=== PATIENT | male | born 1965 | race Caucasian/White ===

== ENCOUNTER 2017-02-28 13:26 | Emergency (ER) | payer BC ==
[2017-02-28 13:55] VITALS: RESP 18
[2017-02-28] MEDS ORDERED: RX INFO: IV CONTRAST WAS GIVEN 1 EACH MISC MISCELLANE PRN (13:56)
[2017-02-28] MEDS ORDERED: MORPHINE SULFATE 4 MG/ML SYRINGE IV STA (13:56)
[2017-02-28] MEDS ORDERED: ONDANSETRON 4 MG/2 ML VIAL IVP STA (13:56)
[2017-02-28] MEDS ORDERED: PANTOPRAZOLE 40 MG/10 ML VIAL IVP STA (13:56)
[2017-02-28] MEDS ORDERED: SODIUM CHLORIDE 0.9% 1,000 ML IV STA ×2 (13:56)
[2017-02-28 14:26] LABS: Basophils # (A) 0.1 k/uL (0-0.2); Basophils % (A) 1 %; CH 30.6; CHCM 33.2; Eosinophils # (A) 0.3 k/uL (0-0.7); Eosinophils % (A) 4 %; HCT 45.3 % (39.0-53.0); HGB 14.8 gm/dL (13.0-17.5); Luc # (Auto) 0.17; Luc % (Auto) 3; Lymphocytes # (A) 1.3 k/uL (1.0-4.8); Lymphocytes % (A) 20 %; MCH 30.3 pg (25.0-35.0); MCHC 32.8 g/dL (31.0-37.0); MCV 92.6 fL (80.0-100.0); Mean Platelet Volume 7.2; Monocytes # (A) 0.6 k/uL (0-1.0); Monocytes % (A) 9 %; Neutrophils % (A) 64 %; RBC 4.89 m/uL (4.30-5.90); RDW 12.9 % (11.5-15.5); WBC 6.3 k/uL (3.8-10.6); WBC (Perox) 5.79
--- NOTE | 2017-02-28 14:27 | ED ---
General Adult HPI - General Chief complaint: Abdominal Pain Stated complaint: Abd Pain/Urinate blood Time Seen by Provider: 02/28/17 13:42 Source: patient, RN notes reviewed, old records reviewed Mode of arrival: ambulatory Limitations: no limitations - History of Present Illness Initial comments: This is a 51-year-old male the ER for evaluation of abdominal pain. Right upper quadrant epigastric abdominal pain. No history of obstruction the patient thinks he probably has bowel blockage. No history of abdominal surgery. Patient has a little bit of high cholesterol and no other medical issues takes no medications. Resistant been constipated for a few week days to week. No help with [id number] medications. He did notice some blood in his stool yesterday. He has had prior colonoscopy which had some diverticulosis but no significant findings. - Related Data Home Medications Medication Instructions Recorded Confirmed Omeprazole [PriLOSEC] 20 tab PO DAILY 03/10/15 02/28/17 Atorvastatin [Lipitor] 20 mg PO HS 02/28/17 02/28/17 Cetirizine HCl [Zyrtec] 10 mg PO DAILY PRN 02/28/17 02/28/17 Cholecalciferol [Vitamin D3] 1,000 unit PO DAILY 02/28/17 02/28/17 Ibuprofen [Motrin] 600 mg PO BID PRN 02/28/17 02/28/17 Allergies Allergy/AdvReac Type Severity Reaction Status Date / Time succinylcholine AdvReac Severe Toxicity Verified 02/28/17 15:18 Review of Systems ROS Statement: Those systems with pertinent positive or pertinent negative responses have been documented in the HPI. ROS Other: All systems not noted in ROS Statement are negative. Past Medical History Past Medical History: Hyperlipidemia Additional Past Medical History / Comment(s): irritable bowel syndrome History of Any Multi-Drug Resistant Organisms: None Reported Past Surgical History: No Surgical Hx Reported Past Psychological History: No Psychological Hx Reported Smoking Status: Never smoker Past Alcohol Use History: None Reported Past Drug Use History: None Reported General Exam Limitations: no limitations General appearance: alert, in no apparent distress Head exam: Present: atraumatic, normocephalic, normal inspection Eye exam: Present: normal appearance, PERRL, EOMI. Absent: scleral icterus, conjunctival injection, periorbital swelling ENT exam: Present: normal exam, mucous membranes moist Neck exam: Present: normal inspection. Absent: tenderness, meningismus, lymphadenopathy Respiratory exam: Present: normal lung sounds bilaterally. Absent: respiratory distress, wheezes, rales, rhonchi, stridor Cardiovascular Exam: Present: regular rate, normal rhythm, normal heart sounds. Absent: systolic murmur, diastolic murmur, rubs, gallop, clicks GI/Abdominal exam: Present: soft, normal bowel sounds. Absent: distended, tenderness, guarding, rebound, rigid Extremities exam: Present: normal inspection, full ROM, normal capillary refill. Absent: tenderness, pedal edema, joint swelling, calf tenderness Back exam: Present: normal inspection Neurological exam: Present: alert, oriented X3, CN II-XII intact Psychiatric exam: Present: normal affect, normal mood Skin exam: Present: warm, dry, intact, normal color. Absent: rash Course Vital Signs 02/28/17 13:50 Temperature 97.8 F Pulse Rate 89 Respiratory 18 Rate Blood Pressure 131/84 O2 Sat by Pulse 97 Oximetry - Reevaluation(s) Reevaluation #1: 02/28/17 15:36 At this point patient has complete resolution of symptoms Medical Decision Making - Medical Decision Making 51 mallei are free patient down pain, epigastric left upper quadrant abdominal pain. CT abdomen and pelvis is negative for acute disease labwork is normal patient can be discharged home - Lab Data Result diagrams: 02/28/17 14:13 02/28/17 14:13 Lab Results 02/28/17 02/28/17 02/28/17 Range/Units 14:13 14:13 14:13 WBC 6.3 (3.8-10.6) k/uL RBC 4.89 (4.30-5.90) m/uL Hgb 14.8 (13.0-17.5) gm/dL Hct 45.3 (39.0-53.0) % MCV 92.6 (80.0-100.0) fL MCH 30.3 (25.0-35.0) pg MCHC 32.8 (31.0-37.0) g/dL RDW 12.9 (11.5-15.5) % Plt Count 237 (150-450) k/uL Neutrophils % 64 % Lymphocytes % 20 % Monocytes % 9 % Eosinophils % 4 % Basophils % 1 % Neutrophils # 4.0 (1.3-7.7) k/uL Lymphocytes # 1.3 (1.0-4.8) k/uL Monocytes # 0.6 (0-1.0) k/uL Eosinophils # 0.3 (0-0.7) k/uL Basophils # 0.1 (0-0.2) k/uL Sodium 144 (137-145) mmol/L Potassium 4.3 (3.5-5.1) mmol/L Chloride 111 H (98-107) mmol/L Carbon Dioxide 26 (22-30) mmol/L Anion Gap 7 mmol/L BUN 15 (9-20) mg/dL Creatinine 0.90 (0.66-1.25) mg/dL Est GFR (MDRD) Af Amer >60 (>60 ml/min/1.73 sqM) Est GFR (MDRD) Non-Af >60 (>60 ml/min/1.73 sqM) Glucose 116 H (74-99) mg/dL Plasma Lactic Acid Sawyer (0.7-2.0) mmol/L Calcium 9.0 (8.4-10.2) mg/dL Total Bilirubin 0.7 (0.2-1.3) mg/dL AST 31 (17-59) U/L ALT 41 (21-72) U/L Alkaline Phosphatase 70 (38-126) U/L Total Creatine Kinase 359 H (55-170) U/L CK-MB (CK-2) 2.6 H* (0.0-2.4) ng/mL CK-MB (CK-2) Rel Index 0.7 Troponin I <0.012 (0.000-0.034) ng/mL Total Protein 7.2 (6.3-8.2) g/dL Albumin 4.0 (3.5-5.0) g/dL Amylase 65 (30-110) U/L Lipase 97 (23-300) U/L 02/28/17 Range/Units 14:13 WBC (3.8-10.6) k/uL RBC (4.30-5.90) m/uL Hgb (13.0-17.5) gm/dL Hct (39.0-53.0) % MCV (80.0-100.0) fL MCH (25.0-35.0) pg MCHC (31.0-37.0) g/dL RDW (11.5-15.5) % Plt Count (150-450) k/uL Neutrophils % % Lymphocytes % % Monocytes % % Eosinophils % % Basophils % % Neutrophils # (1.3-7.7) k/uL Lymphocytes # (1.0-4.8) k/uL Monocytes # (0-1.0) k/uL Eosinophils # (0-0.7) k/uL Basophils # (0-0.2) k/uL Sodium (137-145) mmol/L Potassium (3.5-5.1) mmol/L Chloride (98-107) mmol/L Carbon Dioxide (22-30) mmol/L Anion Gap mmol/L BUN (9-20) mg/dL Creatinine (0.66-1.25) mg/dL Est GFR (MDRD) Af Amer (>60 ml/min/1.73 sqM) Est GFR (MDRD) Non-Af (>60 ml/min/1.73 sqM) Glucose (74-99) mg/dL Plasma Lactic Acid Sawyer 1.4 (0.7-2.0) mmol/L Calcium (8.4-10.2) mg/dL Total Bilirubin (0.2-1.3) mg/dL AST (17-59) U/L ALT (21-72) U/L Alkaline Phosphatase (38-126) U/L Total Creatine Kinase (55-170) U/L CK-MB (CK-2) (0.0-2.4) ng/mL CK-MB (CK-2) Rel Index Troponin I (0.000-0.034) ng/mL Total Protein (6.3-8.2) g/dL Albumin (3.5-5.0) g/dL Amylase (30-110) U/L Lipase (23-300) U/L - Radiology Data Radiology results: report reviewed (CT and pelvis is negative for acute disease) , image reviewed Disposition Clinical Impression: Constipation, Abdominal pain, Gastritis Disposition: HOME SELF-CARE Condition: Good Instructions: Abdominal Pain (ED) Referrals: Mariusz Solitario MD [Primary Care Provider] - 1-2 days
[2017-02-28 14:56] LABS: Creatine Kinase 359 U/L (55-170)
[2017-02-28 15:04] LABS: ALT 41 U/L (21-72); AST 31 U/L (17-59); Alkaline Phosphatase 70 U/L (38-126); Amylase 65 U/L (30-110); Anion Gap 7 mmol/L; Blood Urea Nitrogen 15 mg/dL (9-20); Carbon Dioxide 26 mmol/L (22-30); Chloride 111 mmol/L (98-107); Glucose 116 mg/dL (74-99); Non-African American GFR(MDRD) >60 (>60 ml/min/1.73 sqM); Potassium 4.3 mmol/L (3.5-5.1); Sodium 144 mmol/L (137-145); Total Bilirubin 0.7 mg/dL (0.2-1.3); Total Protein 7.2 g/dL (6.3-8.2)
[2017-02-28 15:07] LABS: Troponin I <0.012 ng/mL (0.000-0.034)
[2017-02-28 15:09] LABS: Creatine Kinase MB 2.6 ng/mL (0.0-2.4)
--- NOTE | 2017-02-28 15:11 | CT ---
EXAMINATION TYPE: CT abdomen pelvis w con DATE OF EXAM: 02/28/2017 2:58 PM COMPARISON: 03/10/2015 HISTORY: Upper abdominal pain, constipation x [address] DLP: 1821.00 mGycm Automated exposure control for dose reduction was used. TECHNIQUE: Helical acquisition of images was performed from the lung bases through the pelvis. CONTRAST: Performed without Oral Contrast and with IV Contrast, patient injected with 100 mL of Omnipaque 300. FINDINGS: Lung bases are clear of consolidation. There is mild subsegmental atelectasis at the lung bases. Ther e is no pleural effusion. Heart size is normal. Liver spleen pancreas gallbladder appear normal. Bile ducts are not dilated. There is no adrenal mass . Kidneys show satisfactory contrast opacification. There is no hydronephrosis. Appendix appears norm al. I see no intestinal wall thickening. There are no dilated loops. Bladder distends smoothly. There is no ascites. There is no sign of a pelvic mass. There are some diverticula in the descending colon and sigmoid colon. There is no sign of diverticulitis. I see no bony destructive process. IMPRESSION: THERE IS LEFT-SIDED COLONIC DIVERTICULOSIS WITHOUT SIGN OF DIVERTICULITIS. THERE IS CLEARING OF THE M ILD LEFT-SIDED HYDRONEPHROSIS AND PERINEPHRIC EDEMA COMPARED TO OLD EXAM. MILD SUBSEGMENTAL ATELECTAS IS AT THE LUNG BASES.
[2017-02-28 15:44] LABS: Appearance,Urine Clear (Clear); Bilirubin,Urine Negative (Negative); Glucose,Urine (UA) Negative (Negative); Ketones,Urine Negative (Negative); Leukocyte Esterase,Urine Negative (Negative); Nitrite,Urine Negative (Negative); PH, Urine 5.5 (5.0-8.0); Protein,Urine Negative (Negative); Specific Gravity,Urine 1.028 (1.001-1.035); UA Billing (MACRO vs. MICRO) CHEM; Urobilinogen,Urine <2.0 mg/dL (<2.0)
[2017-02-28 15:47] VITALS: BP 118/70; PULSE 63; TEMP 97.2
== END 2017-02-28 15:46 | disposition home or self-care (01) ==
LOC: EC 13:26
DX: K59.00 Constipation, unspecified (principal); K29.70 Gastritis, unspecified, without bleeding; E78.5 Hyperlipidemia, unspecified; Z88.8 Allergy status to other drugs, medicaments and biological substances; Z79.899 Other long term (current) drug therapy
CPT/HCPCS: 99284; 96374; 96375 ×2; 96361; 36415; 80053; 82150; 82550; 82553; 83605; 83690; 84484; 85025; 81003; 87086; 74177; J2270; J2405; Q9967; C9113

== ENCOUNTER → 2017-03-21 | Outpatient (CLI) | payer BC ==
[2017-03-21 17:01] LABS: Basophils % (A) 1 %; CHCM 34.3; Eosinophils # (A) 0.1 k/uL (0-0.7); Eosinophils % (A) 3 %; HCT 45.7 % (39.0-53.0); HDW 2.58; HGB 15.2 gm/dL (13.0-17.5); Luc # (Auto) 0.18; Luc % (Auto) 3; Lymphocytes # (A) 1.1 k/uL (1.0-4.8); Lymphocytes % (A) 21 %; MCH 30.2 pg (25.0-35.0); MCHC 33.3 g/dL (31.0-37.0); MCV 90.7 fL (80.0-100.0); Mean Platelet Volume 6.9; Monocytes # (A) 0.4 k/uL (0-1.0); Monocytes % (A) 9 %; Neutrophils # (A) 3.3 k/uL (1.3-7.7); Neutrophils % (A) 64 %; RBC 5.04 m/uL (4.30-5.90); RDW 12.4 % (11.5-15.5); WBC 5.2 k/uL (3.8-10.6); WBC (Perox) 5.44
[2017-03-21 17:11] LABS: ALT 57 U/L (21-72); AST 28 U/L (17-59); Alkaline Phosphatase 86 U/L (38-126); Anion Gap 12 mmol/L; Blood Urea Nitrogen 16 mg/dL (9-20); C Reactive Protein 6.2 mg/L (<10.0); Calcium 9.6 mg/dL (8.4-10.2); Carbon Dioxide 25 mmol/L (22-30); Chloride 109 mmol/L (98-107); Cholesterol 214 mg/dL (<200); Creatine Kinase 177 U/L (55-170); Glucose 89 mg/dL (74-99); HDL Cholesterol 33 mg/dL (40-60); Magnesium 1.8 mg/dL (1.6-2.3); Non-African American GFR(MDRD) >60 (>60 ml/min/1.73 sqM); Phosphorous 3.4 mg/dL (2.5-4.5); Potassium 4.1 mmol/L (3.5-5.1); Sodium 146 mmol/L (137-145); Total Bilirubin 1.4 mg/dL (0.2-1.3); Total Protein 7.7 g/dL (6.3-8.2); Triglycerides 136 mg/dL (<150); Uric Acid 10.5 mg/dL (3.5-8.5)
[2017-03-21 17:38] LABS: Prostate Specific Antigen 0.59 ng/mL (0.00-4.00)
[2017-03-21 20:02] LABS: Erythrocyte Sedimentation Rate 5 mm/hr (0-15)
== END | disposition home or self-care (01) ==
LOC: LABWHC1 16:36
PROVIDERS: ATTEND Internal Medicine
DX: Z00.00 Encounter for general adult medical examination without abnormal findings (principal); N40.0 Benign prostatic hyperplasia without lower urinary tract symptoms; E78.5 Hyperlipidemia, unspecified; E55.9 Vitamin D deficiency, unspecified; N34.3 Urethral syndrome, unspecified
CPT/HCPCS: 36415; 80053; 80061; 82306; 82550; 83735; 84100; 84153; 84443; 84550; 85025; 85652; 86140

== ENCOUNTER → 2017-04-04 | Outpatient (CLI) | payer BC ==
--- NOTE | 2017-04-04 09:18 | CT ---
EXAMINATION TYPE: CT abdomen w con DATE OF EXAM: 04/04/2017 COMPARISON: 02/28/2017 INDICATION: Frequent constipation DLP: 1387.9 mGycm, Automated exposure control for dose reduction was used. CONTRAST: 100 mL of Omnipaque 300. Study performed with Oral Contrast TECHNIQUE: Axial images were obtained from above the diaphragm to the pubic rami in the axial plane a t 5 mm thick sections. Reconstructed images are reviewed on the computer in the coronal plane. FINDINGS: Limited CT sections are obtained the lung bases. Some mild streak opacity is present greater at the right base, likely on the basis of subsegmental atelectasis.. CT ABDOMEN: Liver: There is mild fatty infiltration to the liver. No discrete masses or cysts are evident. Spleen: Normal Pancreas: Normal Adrenal glands: The adrenal glands are normal. Gallbladder: Normal Kidneys: No masses are evident. No hydronephrosis is present. Small cortical renal cyst on the mid left kidney measuring 1.0 cm. Delayed images were obtained through the kidneys, which remain unremark able. Aorta: Normal Inferior vena cava: Normal. Loops of bowel within the abdomen and pelvis are normal. There are loops of bowel which are incom pletely distended or lack oral contrast limiting their evaluation. Scattered diverticuli are within t he distal colon were visualized. Appendix: Normal as visualized. IMPRESSIONS: 1. Mild fatty infiltration of the liver. 2. Scattered diverticuli without diverticulitis.
== END | disposition home or self-care (01) ==
LOC: RADCTMAIN 08:04
PROVIDERS: ATTEND Internal Medicine
DX: K57.30 Diverticulosis of large intestine without perforation or abscess without bleeding (principal); K76.0 Fatty (change of) liver, not elsewhere classified; K59.00 Constipation, unspecified; R10.32 Left lower quadrant pain; Z88.8 Allergy status to other drugs, medicaments and biological substances
CPT/HCPCS: 74160; Q9967

== ENCOUNTER → 2018-07-24 | Outpatient (CLI) | payer BC ==
[2018-07-24 14:53] LABS: Basophils # (A) 0.1 k/uL (0-0.2); Basophils % (A) 1 %; Eosinophils # (A) 0.1 k/uL (0-0.7); Eosinophils % (A) 2 %; HCT 45.2 % (39.0-53.0); HGB 14.5 gm/dL (13.0-17.5); Lymphocytes # (A) 1.2 k/uL (1.0-4.8); Lymphocytes % (A) 25 %; MCH 29.6 pg (25.0-35.0); MCHC 32.1 g/dL (31.0-37.0); MCV 92.4 fL (80.0-100.0); Mean Platelet Volume 7.1; Monocytes # (A) 0.4 k/uL (0-1.0); Monocytes % (A) 9 %; Neutrophils # (A) 2.9 k/uL (1.3-7.7); Neutrophils % (A) 60 %; Platelet Count 274 k/uL (150-450); RBC 4.89 m/uL (4.30-5.90); RDW 12.6 % (11.5-15.5); WBC 4.8 k/uL (3.8-10.6)
[2018-07-24 15:18] LABS: ALT 51 U/L (21-72); AST 29 U/L (17-59); Albumin 4.2 g/dL (3.5-5.0); Alkaline Phosphatase 74 U/L (38-126); Anion Gap 7 mmol/L; Blood Urea Nitrogen 16 mg/dL (9-20); C Reactive Protein <5.0 mg/L (<10.0); Calcium 9.4 mg/dL (8.4-10.2); Carbon Dioxide 27 mmol/L (22-30); Chloride 110 mmol/L (98-107); Cholesterol 197 mg/dL (<200); Creatine Kinase 222 U/L (55-170); Glucose 92 mg/dL (74-99); HDL Cholesterol 32 mg/dL (40-60); LDL Cholesterol,Calculated 143 mg/dL (0-99); Potassium 4.6 mmol/L (3.5-5.1); Sodium 144 mmol/L (137-145); Total Bilirubin 1.1 mg/dL (0.2-1.3); Total Protein 7.4 g/dL (6.3-8.2); Triglycerides 110 mg/dL (<150)
[2018-07-24 15:42] LABS: Prostate Specific Antigen 0.73 ng/mL (0.00-4.00)
[2018-07-24 15:58] LABS: Erythrocyte Sedimentation Rate 8 mm/hr (0-15)
== END | disposition home or self-care (01) ==
LOC: LABWHC1 13:27
PROVIDERS: ATTEND Internal Medicine
DX: E78.5 Hyperlipidemia, unspecified (principal); I10 Essential (primary) hypertension; E55.9 Vitamin D deficiency, unspecified; N40.0 Benign prostatic hyperplasia without lower urinary tract symptoms; K21.9 Gastro-esophageal reflux disease without esophagitis
CPT/HCPCS: 36415; 80053; 80061; 82306; 82550; 84153; 85025; 85652; 86140

== ENCOUNTER 2018-12-11 16:20 | Outpatient (CLI) | payer BC | END 2018-12-11 16:38 | disposition home or self-care (01) | LOC: PEDOP 16:20 | PROVIDERS: ATTEND Internal Medicine | DX: N39.0 Urinary tract infection, site not specified (principal); J09.X2 Influenza due to identified novel influenza A virus with other respiratory manifestations | CPT/HCPCS: 87502; 99212 ==

== ENCOUNTER → 2019-08-15 | Outpatient (CLI) | payer BC ==
[2019-08-15 18:24] LABS: Basophils # (A) 0.1 k/uL (0-0.2); Basophils % (A) 1 %; Eosinophils # (A) 0.2 k/uL (0-0.7); Eosinophils % (A) 3 %; HGB 14.4 gm/dL (13.0-17.5); Lymphocytes # (A) 1.5 k/uL (1.0-4.8); Lymphocytes % (A) 23 %; MCH 29.4 pg (25.0-35.0); MCV 91.8 fL (80.0-100.0); Monocytes # (A) 0.5 k/uL (0-1.0); Monocytes % (A) 8 %; Neutrophils # (A) 3.9 k/uL (1.3-7.7); Neutrophils % (A) 62 %; Platelet Count 269 k/uL (150-450); RDW 12.4 % (11.5-15.5); WBC 6.2 k/uL (3.8-10.6)
[2019-08-15 19:37] LABS: Erythrocyte Sedimentation Rate 8 mm/hr (0-15)
[2019-08-16 00:31] LABS: ALT 33 U/L (10-49); AST 24 U/L (14-35); African American GFR (CKD) 98.5 (60.0-200.0); Albumin/Globulin Ratio 1.83 (1.60-3.17); Alkaline Phosphatase 86 U/L (41-126); C Reactive Protein <0.4 mg/dL (0.0-0.8); Calcium 8.9 mg/dL (8.7-10.3); Chloride 108 mmol/L (96-109); Chol/HDL Ratio 6.59; Cholesterol 211 mg/dL (0-200); Creatine Kinase 213 U/L (35-257); Globulin 2.4 g/dL (1.6-3.3); Glucose 76 mg/dL (70-110); Magnesium 1.7 mg/dL (1.5-2.4); Phosphorus 3.4 mg/dL (2.4-5.1); Potassium 4.4 mmol/L (3.5-5.5); Sodium 143 mmol/L (135-145); Total Bilirubin 0.9 mg/dL (0.3-1.2); Total Protein 6.8 g/dL (6.2-8.2); Uric Acid 10.2 mg/dL (3.7-8.7)
== END | disposition home or self-care (01) ==
LOC: LABWHC1 17:08
PROVIDERS: ATTEND Internal Medicine
DX: E78.5 Hyperlipidemia, unspecified (principal); E55.9 Vitamin D deficiency, unspecified; I10 Essential (primary) hypertension; N20.0 Calculus of kidney; M10.9 Gout, unspecified; N40.0 Benign prostatic hyperplasia without lower urinary tract symptoms
CPT/HCPCS: 36415; 80053; 80061; 82306; 82550; 83735; 84100; 84153; 84550; 85025; 85652; 86140

== ENCOUNTER 2020-03-30 16:16 | Emergency (ER) | payer BC ==
[2020-03-30] MEDS ORDERED: SODIUM CHLORIDE 0.9% 1,000 ML IV STA (16:35)
[2020-03-30] MEDS ORDERED: KETOROLAC 30 MG/ML 1 ML VIAL IVP STA (16:35)
--- NOTE | 2020-03-30 17:02 | ED ---
General Adult HPI - General Source: patient, RN notes reviewed Mode of arrival: ambulatory Limitations: no limitations <Jared Stuart - Last Filed: 03/30/20 22:34> <Sarahy Elder - Last Filed: 04/03/20 16:39> - General Chief complaint: Extremity Problem,Nontraumatic Stated complaint: right wrist pain Time Seen by Provider: 03/30/20 16:25 - History of Present Illness Initial comments: 54-year-old male presents to the emergency department for a chief complaint of right arm pain. Patient states that he has had pain in the right first and second digits starting about 2 weeks ago. States the pain is progressively spread to his hand and wrist to the point where it is very painful to move the wrist especially in extension. States the pain has extended up now past the elbow onto the right shoulder. Patient states the right wrist is also swollen. Patient went to [facility] and had an x-ray done where there is concern for non-gaseous necrotizing fasciitis on x-ray. He was sent here to the emergency r oom. He does not have any fevers. He does state that he was told his uric acid levels were high but he does not have a history of gout.Patient has no other complaints at this time including shortness of breath, chest pain, abdominal pain, nausea or vomiting, headache, or visual changes. (Jared Stuart) - Related Data Home Medications Medication Instructions Recorded Confirmed Omeprazole [PriLOSEC] 20 tab PO DAILY 03/10/15 02/28/17 Atorvastatin [Lipitor] 20 mg PO HS 02/28/17 02/28/17 Cetirizine HCl [Zyrtec] 10 mg PO DAILY PRN 02/28/17 02/28/17 Cholecalciferol [Vitamin D3] 1,000 unit PO DAILY 02/28/17 02/28/17 Ibuprofen [Motrin] 600 mg PO BID PRN 02/28/17 02/28/17 Previous Rx's Medication Instructions Recorded Acetaminophen with Codeine 1 tab PO Q4H PRN #20 tab 02/28/17 [Tylenol w/codeine #3] Dicyclomine [Bentyl] 20 mg PO QID #20 tablet 02/28/17 Omeprazole [PriLOSEC] 20 mg PO AC-BID #30 cap 02/28/17 Ondansetron [Zofran] 4 mg PO Q8HR PRN #30 tab 02/28/17 Ondansetron [Zofran ODT] 4 mg PO Q8HR PRN #15 tab 03/30/20 predniSONE 50 mg PO DAILY #5 tablet 03/30/20 Allergies Allergy/AdvReac Type Severity Reaction Status Date / Time succinylcholine AdvReac Severe Toxicity Verified 03/30/20 16:23 Review of Systems ROS Other: All systems not noted in ROS Statement are negative. <Jared Stuart P - Last Filed: 03/30/20 22:34> ROS Other: All systems not noted in ROS Statement are negative. <Sarahy Elder - Last Filed: 04/03/20 16:39> ROS Statement: Those systems with pertinent positive or pertinent negative responses have been documented in the HPI. Past Medical History Past Medical History: Hyperlipidemia Additional Past Medical History / Comment(s): irritable bowel syndrome History of Any Multi-Drug Resistant Organisms: None Reported Past Surgical History: No Surgical Hx Reported Past Psychological History: No Psychological Hx Reported Smoking Status: Never smoker Past Alcohol Use History: None Reported Past Drug Use History: None Reported <Jared Stuart P - Last Filed: 03/30/20 22:34> General Exam Limitations: no limitations General appearance: alert, in no apparent distress Head exam: Present: atraumatic, normocephalic, normal inspection Eye exam: Present: normal appearance, PERRL, EOMI. Absent: scleral icterus, conjunctival injection, periorbital swelling ENT exam: Present: normal exam, mucous membranes moist Neck exam: Present: normal inspection, full ROM. Absent: tenderness, meningi smus, lymphadenopathy Respiratory exam: Present: normal lung sounds bilaterally. Absent: respiratory distress, wheezes, rales, rhonchi, stridor Cardiovascular Exam: Present: regular rate, normal rhythm, normal heart sounds. Absent: systolic murmur, diastolic murmur, rubs, gallop, clicks GI/Abdominal exam: Present: soft, normal bowel sounds. Absent: distended, tenderness, guarding, rebound, rigid Extremities exam: Present: normal inspection, full ROM (Patient has limited flexion of the fingers with full extension of the right hand. Patient has limited extension of the right wrist secondary to pain. Full range motion of the right elbow and right shoulder.), normal capillary refill (Refill less than 2 seconds, radial pulse 2+.), joint swelling (Patient does have some edema noted of the dorsal right wrist however no streaking erythema.). Absent: tenderness, pedal edema, calf tenderness <Jared Stuart - Last Filed: 03/30/20 22:34> Course Vital Signs 03/30/20 03/30/20 16:22 19:15 Temperature 98.7 F 98.0 F Pulse Rate 81 52 L Respiratory 18 13 Rate Blood Pressure 127/80 108/68 O2 Sat by Pulse 98 96 Oximetry Medical Decision Making - Lab Data Result diagrams: 03/30/20 17:12 03/30/20 17:12 <Jared Stuart - Last Filed: 03/30/20 22:34> - Lab Data Result diagrams: 03/30/20 17:12 03/30/20 17:12 <Sarahy Elder - Last Filed: 04/03/20 16:39> - Medical Decision Making Outpatient x-ray showed subtle subcutaneous edematous streaking suspicious for possible myositis or non gas-forming necrotizing fasciitis. Vitals are stable. Patient does have some edema of the dorsum right wrist with pain with range of motion. However patient does not have any erythema or increased warmth of the right wrist. Neurovascular status intact. Full range of motion of the right elbow and shoulder. Patient able to move all fingers make okay sign. CBC CMP is unremarkable. White blood cell count is normal. ESR is normal. CRP is only minimally elevated at 17.7. Both wrist and hand x- rays here are negative. Dr. Elder also evaluated patient. At this time given symptoms have been ongoing for 2 weeks there is no erythema, increased warmth, or fevers this is not consistent with infectious etiology. Likely inflammatory. Dr. Elder discussed this case with Dr. Garduno who agrees and recommends this is likely pseudogout. He is not concerned for necrotizing fasciitis which we agree with. Recommends putting patient on steroids and having him follow-up in the office. Patient is agreeable to this accident is much improved after IV Toradol. He was given dose of IV steroids before departure. (Jared Stuart) I was available for consultation in the emergency department. The history and physical exam were done by the midlevel provider. I was consulted for this patients care. I reviewed the case with the midlevel provider and based on their presentation of the patient, I agree with the assessment, medical decision making and plan of care as documented. I discussed the case with Dr. Garduno. Chart was dictated using [employer] dictation software. Attempts were made to correct any dictation errors however some typographical errors may persist. Patient was seen during a national state of emergency due to the Covid-19 pandemic. (Sarahy Elder) - Lab Data Lab Results 03/30/20 03/30/20 03/30/20 Range/Units 17:12 17:12 17:12 WBC 7.9 (3.8-10.6) k/uL RBC 4.65 (4.30-5.90) m/uL Hgb 13.8 (13.0-17.5) gm/dL Hct 42.5 (39.0-53.0) % MCV 91.4 (80.0-100.0) fL MCH 29.7 (25.0-35.0) pg MCHC 32.5 (31.0-37.0) g/dL RDW 12.7 (11.5-15.5) % Plt Count 247 (150-450) k/uL Neutrophils % 70 % Lymphocytes % 16 % Monocytes % 8 % Eosinophils % 3 % Basophils % 1 % Neutrophils # 5.5 (1.3-7.7) k/uL Lymphocytes # 1.3 (1.0-4.8) k/uL Monocytes # 0.6 (0-1.0) k/uL Eosinophils # 0.2 (0-0.7) k/uL Basophils # 0.1 (0-0.2) k/uL ESR 14 (0-15) mm/hr Sodium 139 (137-145) mmol/L Potassium 4.4 (3.5-5.1) mmol/L Chloride 107 (98-107) mmol/L Carbon Dioxide 23 (22-30) mmol/L Anion Gap 9 mmol/L BUN 21 H (9-20) mg/dL Creatinine 1.05 (0.66-1.25) mg/dL Est GFR (CKD-EPI)AfAm >90 (>60 ml/min/1.73 sqM) Est GFR (CKD-EPI)NonAf 80 (>60 ml/min/1.73 sqM) Glucose 88 (74-99) mg/dL Plasma Lactic Acid Sawyer 0.8 (0.7-2.0) mmol/L Calcium 9.0 (8.4-10.2) mg/dL Total Bilirubin 0.7 (0.2-1.3) mg/dL AST 24 (17-59) U/L ALT 30 (4-49) U/L Alkaline Phosphatase 83 (38-126) U/L C-Reactive Protein 17.7 H (<10.0) mg/L Total Protein 7.5 (6.3-8.2) g/dL Albumin 4.2 (3.5-5.0) g/dL Disposition Is patient prescribed a controlled substance at d/c from ED?: No Time of Disposition: 19:09 <Jared Stuart - Last Filed: 03/30/20 22:34> <Sarahy Elder - Last Filed: 04/03/20 16:39> Clinical Impression: Wrist pain, right Disposition: HOME SELF-CARE Condition: Good Instructions (If sedation given, give patient instructions): Wrist Injury (ED) Additional Instructions: Please take Motrin and Tylenol for pain. Take steroid as directed. Make sure to eat something before taking Motrin or steroid to prevent stomach ulcers. Follow-up with orthopedics by calling for an appointment on Tuesday. Return to the emergency department for any worsening symptoms or fevers. Prescriptions: predniSONE 50 mg PO DAILY #5 tablet Ondansetron [Zofran ODT] 4 mg PO Q8HR PRN #15 tab PRN Reason: Nausea Referrals: Mariusz Solitario MD [Primary Care Provider] - 1-2 days Bhanu Garduno DO [Medical Doctor] - 1-2 days
[2020-03-30 17:21] LABS: Basophils # (A) 0.1 k/uL (0-0.2); Basophils % (A) 1 %; Eosinophils # (A) 0.2 k/uL (0-0.7); Eosinophils % (A) 3 %; HCT 42.5 % (39.0-53.0); HGB 13.8 gm/dL (13.0-17.5); Lymphocytes # (A) 1.3 k/uL (1.0-4.8); Lymphocytes % (A) 16 %; MCH 29.7 pg (25.0-35.0); MCHC 32.5 g/dL (31.0-37.0); MCV 91.4 fL (80.0-100.0); Mean Platelet Volume 7.9; Monocytes # (A) 0.6 k/uL (0-1.0); Monocytes % (A) 8 %; Neutrophils # (A) 5.5 k/uL (1.3-7.7); Neutrophils % (A) 70 %; Platelet Count 247 k/uL (150-450); RBC 4.65 m/uL (4.30-5.90); RDW 12.7 % (11.5-15.5); WBC 7.9 k/uL (3.8-10.6)
--- NOTE | 2020-03-30 17:22 | XR ---
EXAMINATION TYPE: XR wrist complete RT DATE OF EXAM: 03/30/2020 COMPARISON: NONE HISTORY: Pain and swelling TECHNIQUE: 4 views FINDINGS: Carpal bones are intact. I see no fracture nor dislocation. Joint spaces are normal. Metaca rpals are intact. IMPRESSION: Negative right wrist exam. No fracture.
--- NOTE | 2020-03-30 17:25 | XR ---
EXAMINATION TYPE: XR hand complete RT DATE OF EXAM: 03/30/2020 COMPARISON: NONE HISTORY: Pain and swelling TECHNIQUE: 3 views FINDINGS: I see no fracture nor dislocation. Joint spaces are normal. Metacarpals are intact. There is some soft tissue swelling around the carpus. IMPRESSION: No fracture seen. Mild soft tissue swelling.
[2020-03-30 17:36] LABS: ALT 30 U/L (4-49); AST 24 U/L (17-59); African American GFR (CKD) >90 (>60 ml/min/1.73 sqM); Albumin 4.2 g/dL (3.5-5.0); Alkaline Phosphatase 83 U/L (38-126); Anion Gap 9 mmol/L; Blood Urea Nitrogen 21 mg/dL (9-20); C Reactive Protein 17.7 mg/L (<10.0); Carbon Dioxide 23 mmol/L (22-30); Chloride 107 mmol/L (98-107); Glucose 88 mg/dL (74-99); Non-African American GFR(CKD) 80 (>60 ml/min/1.73 sqM); Potassium 4.4 mmol/L (3.5-5.1); Sodium 139 mmol/L (137-145); Total Bilirubin 0.7 mg/dL (0.2-1.3); Total Protein 7.5 g/dL (6.3-8.2)
[2020-03-30 18:27] LABS: Erythrocyte Sedimentation Rate 14 mm/hr (0-15)
[2020-03-30] MEDS ORDERED: methylPREDNISolone SOD SUCCI 125 MG/2 ML VIAL IV STA (19:08)
[2020-03-30 19:18] VITALS: BP 108/68; PULSE 52; RESP 13; TEMP 98
== END 2020-03-30 19:26 | disposition home or self-care (01) ==
LOC: EC 16:16
DX: M25.531 Pain in right wrist (principal); R60.0 Localized edema; R79.82 Elevated C-reactive protein (CRP); E78.5 Hyperlipidemia, unspecified; Z79.899 Other long term (current) drug therapy; Z88.4 Allergy status to anesthetic agent
CPT/HCPCS: 96374; 96375; 96361 ×2; 99283; 36415; 80053; 85652; 83605; 85025; 86140; 73110; 73130; J2930; J1885

== ENCOUNTER → 2020-04-04 | Outpatient (CLI) | payer BC | END | disposition home or self-care (01) | LOC: LABWHC1 11:54 | PROVIDERS: ATTEND Internal Medicine | DX: E79.0 Hyperuricemia without signs of inflammatory arthritis and tophaceous disease (principal); M10.9 Gout, unspecified | CPT/HCPCS: 36415; 84550 ==

== ENCOUNTER → 2020-04-25 | Outpatient (CLI) | payer BC ==
--- NOTE | 2020-04-25 12:19 | XR ---
EXAMINATION TYPE: XR ankle complete 3 views RT, XR foot complete 3 views RT DATE OF EXAM: 04/25/2020 COMPARISON: NONE HISTORY: 54-year-old male M81.0, rheumatoid arthritis FINDINGS: Ankle: Smooth delineation to the Achilles tendon. Ankle mortise is congruent with preservation of the distal tibiofibular overlap. Talar dome is intact. No significant tibiotalar joint effusion is apparent rad iographically. Foot: No marginal erosions or soft tissue calcifications. Tiny type I accessory navicular. Joint spaces ezio ear relatively maintained. No acute fracture, subluxation, dislocation seen. IMPRESSION: Ankle and foot without acute osseous abnormality seen. No specific radiographic findings of inflammat ory arthropathy at this time.
[2020-04-25 20:05] LABS: C Reactive Protein <0.4 mg/dL (0.0-0.8); Rheumatoid Factor, Qnt <4 IU/mL (0-15)
[2020-04-25 20:52] LABS: Cyclic Citrull Pep IgG Unit <0.5 U/mL; Cyclic Citrullinated Pep IgG NEGATIVE (NEGATIVE); DNA Double-Stranded NEGATIVE (NEGATIVE)
[2020-04-25 20:53] LABS: Anti-Smith Ab Interp NEGATIVE (NEGATIVE)
== END | disposition home or self-care (01) ==
LOC: LABWHC1 10:38
PROVIDERS: ATTEND Internal Medicine
DX: M81.0 Age-related osteoporosis without current pathological fracture (principal); M25.571 Pain in right ankle and joints of right foot; M79.671 Pain in right foot; M06.9 Rheumatoid arthritis, unspecified
CPT/HCPCS: 36415; 85652; 86038; 86140; 86200; 86225; 86235; 86431

== ENCOUNTER → 2020-09-01 | Outpatient (CLI) | payer BC ==
[2020-09-01 15:07] LABS: Basophils # (A) 0.1 k/uL (0-0.2); Basophils % (A) 1 %; Eosinophils # (A) 0.3 k/uL (0-0.7); Eosinophils % (A) 6 %; HCT 42.1 % (39.0-53.0); HGB 13.9 gm/dL (13.0-17.5); Lymphocytes # (A) 1.3 k/uL (1.0-4.8); Lymphocytes % (A) 26 %; MCH 30.4 pg (25.0-35.0); MCV 92.2 fL (80.0-100.0); Mean Platelet Volume 7.5; Monocytes # (A) 0.5 k/uL (0-1.0); Monocytes % (A) 10 %; Neutrophils # (A) 2.6 k/uL (1.3-7.7); Neutrophils % (A) 54 %; Platelet Count 230 k/uL (150-450); RBC 4.57 m/uL (4.30-5.90); WBC 4.9 k/uL (3.8-10.6)
[2020-09-01 15:52] LABS: Erythrocyte Sedimentation Rate 11 mm/hr (0-15)
[2020-09-02 00:16] LABS: ALT 53 U/L (10-49); AST 39 U/L (14-35); African American GFR (CKD) 97.8 (60.0-200.0); Albumin/Globulin Ratio 1.71 (1.60-3.17); Alkaline Phosphatase 97 U/L (41-126); C Reactive Protein <0.4 mg/dL (0.0-0.8); Calcium 8.9 mg/dL (8.7-10.3); Carbon Dioxide 26.6 mmol/L (21.6-31.8); Chloride 110 mmol/L (96-109); Cholesterol 171 mg/dL (0-200); Creatine Kinase 266 U/L (35-257); Globulin 2.4 g/dL (1.6-3.3); Glucose 92 mg/dL (70-110); LDL Cholesterol,Calculated 115.6 mg/dL (0.0-131.0); Magnesium 1.8 mg/dL (1.5-2.4); Non-African American GFR(CKD) 84.4 (60.0-200.0); Potassium 4.3 mmol/L (3.5-5.5); Prostate Specific Antigen 0.4 ng/mL (0.0-3.5); Sodium 143 mmol/L (135-145); Total Bilirubin 0.8 mg/dL (0.3-1.2); Total Protein 6.5 g/dL (6.2-8.2); Uric Acid 5.4 mg/dL (3.7-8.7)
== END | disposition home or self-care (01) ==
LOC: LABWHC1 14:28
PROVIDERS: ATTEND Internal Medicine
DX: N40.0 Benign prostatic hyperplasia without lower urinary tract symptoms (principal); M10.9 Gout, unspecified
CPT/HCPCS: 36415; 80053; 80061; 82550; 83735; 84153; 84550; 85025; 85652; 86140

== ENCOUNTER → 2021-11-25 | Outpatient (CLI) | payer BC ==
--- NOTE | 2021-11-26 07:58 | XR ---
EXAMINATION TYPE: XR chest 2V DATE OF EXAM: 11/25/2021 COMPARISON: 01/14/2014 HISTORY: 56-year-old male R06.02, increased shortness of breath for 6 months. TECHNIQUE: Frontal and lateral views FINDINGS: Heart normal size. Aorta and pulmonary vasculature within normal limits. Stable calcified granuloma p eriphery of the right midlung. Some strandy scarring or atelectasis at the left base. Nodularity of t he right hilum likely prominent vessel on end, unchanged from 2013. No consolidation or pleural effus ion. IMPRESSION: Evidence of prior granulomatous disease. Some stable scarring at the left base. No acute process seen .
== END | disposition home or self-care (01) ==
LOC: RADXRMAIN 16:40
PROVIDERS: ATTEND Internal Medicine
DX: R91.8 Other nonspecific abnormal finding of lung field (principal); D71 Functional disorders of polymorphonuclear neutrophils
CPT/HCPCS: 71046